=== PATIENT | female | born 1935 | race Caucasian/White ===

== ENCOUNTER 2020-02-27 20:32 | Emergency (ER) | payer MEDICARE, BC, SELFPAY ==
[2020-02-27 20:34] VITALS: BP 151/63; PULSE 72; RESP 17; TEMP 36.6; O2SAT 96; BMI 30.1
--- NOTE | 2020-02-27 20:54 | XR_ITS ---
WS: [id number] RIGHT SHOULDER: 3 VIEW(S) TECHNIQUE: Internal and external rotation with Y view. HISTORY: fall with shoulder pain COMPARISON: None available. Acute fracture involving the proximal humerus. Avulsion of the greater tuberosity. There is a fractur e that extends into the neck and head of the proximal humerus without significant displacement. Fract ure line extends several centimeters vertically into the proximal humerus. Glenohumeral and AC joints are unremarkable. XR/XR shoulder RT min 2V* [id number] IMPRESSION: 1. Avulsion fracture greater tuberosity. 2. Nondisplaced fracture RIGHT humeral head/neck and proximal diaphysis.
--- NOTE | 2020-02-27 20:54 | XR_ITS ---
WS: [id number] RIGHT KNEE: 3 VIEW(S) TECHNIQUE: AP, oblique(s) and lateral. HISTORY: fall with knee pain COMPARISON: 03/19/2013 No fracture or dislocation. Severe narrowing of the lateral joint space. Near bone upon bone with sclerosis, osteophytes and subc hondral cystic changes. Mild narrowing of patellofemoral and medial compartment. Osteoarthritic swann es are progressed significantly since 2012. Very small suprapatellar effusion. Soft tissue edema anterior to the patella tendon. Moderate atherosclerosis femoral and popliteal artery. XR/XR knee RT 3V* [id number] IMPRESSION: 1. No acute fracture identified. 2. Moderate progression of tricompartment osteoarthritis, most significant in the lateral compartment. 3. Soft tissue edema anteriorly along the patellar tendon.
--- NOTE | 2020-02-27 20:54 | ED_ITS ---
Documented by User: MAT Bingham 02/28/20 03:04 HPI - Fall General: Chief Complaint: Fall Stated Complaint: rt shoulder pain post fall Time Seen by Provider: 02/27/20 20:54 History of Present Illness: HPI Narrative: Patient is an 84-year-old female who comes to the ED after having a fall via EMS.. Patient was walking down a step on a wooden deck and fell hitting her right knee, right shoulder and her head. Patient says she heard a snap or crack when she hit the ground. Patient denies any loss of consciousness or bleeding from the head. Her biggest complaint is right shoulder pain and she says her right knee pain is mild. She rates her right shoulder pain a 9 out of 10. Any movement of around the shoulder joint causes pain. EMS put patient's right arm in sling and gave her IV fentanyl in route. Associated symptoms-after fall: Denies abdominal pain, chest pain, headache(s), hematuria or neck pain Review of Systems Const: Denies: fever(s), chills or fatigue Eyes: Denies: change in vision or eye discomfort ENMT: Denies: throat pain, odynophagia, nasal discharge or nasal congestion Card: Denies: chest pain, palpitations, edema, swelling of feet/ankles, dyspnea on exertion or orthopnea Resp: Denies: dyspnea, productive cough or non-productive cough GI: Denies: abdominal pain, nausea, vomiting, diarrhea, constipation or hematochezia : Denies: flank pain, dysuria or hematuria Musc: Reports: extremity pain (Right knee and right shoulder. Right shoulder hurts her the most.); Denies: neck pain, back pain or extremity swelling Skin/Breast: Denies: rash or new lesions Neuro: Denies: headache(s), numbness in extremities or weakness in extremities PFSH ED PFSH: Medical History Elevated cholesterol Hypertension Urinary incontinence Surgical History H/O bladder repair surgery H/O knee surgery S/P cholecystectomy S/P hysterectomy S/P shoulder surgery Family History Father , TB No problems noted. Mother , TB No problems noted. Social History Smoking and tobacco status: former smoker Alcohol intake: never Marital status: Current occupational status: retired History of recent travel: No Physical Exam Narrative: EXAM NARRATIVE: Patient is a pleasant 84-year-old female that is lying on the exam bed when I enter the room. She had her right arm across to her abdomen and she was holding her right arm with her left arm. She appeared to be in some pain anytime she did any movement with her right arm. Const: COMMON NORMALS: patient oriented x3 and alert GENERAL APPEARANCE: cooperative; not comfortable (Patient appears uncomfortable and in pain in the right shoulder.) HENMT: COMMON NORMALS: normocephalic HEAD & SCALP: normocephalic MOUTH: Normal oral and palatal mucosa present THROAT: posterior oropharynx normal and uvula midline Neck/C-Spine: COMMON NORMALS: supple GENERAL: Yes normal visual inspection Resp: COMMON NORMALS: normal respiratory effort, No retractions, No use of accessory muscles and clear to auscultation bilaterally AUSCULTATION: clear to auscultation bilaterally Cardio: COMMON NORMALS: regular rate, regular rhythm, S1 normal heart sound present, S2 normal heart sound present, No gallops present (Cardio), No clicks present (Cardio), No murmurs present (Cardio) and Peripheral pulses 2+ throughout RATE: regular rate RHYTHM: regular rhythm HEART SOUNDS: S1 normal heart sound present and S2 normal heart sound present PERIPHERAL PULSES: Peripheral pulses 2+ throughout GI: COMMON NORMALS: Normal to inspection, nondistended, normoactive bowel soun ds present, Soft to palpation, non-tender and no masses PALPATION: Yes Soft to palpation : COMMON NORMALS: Yes no CVA tenderness BLADDER/KIDNEY EXAM: Yes no CVA tenderness Back/Pelvis: COMMON NORMALS: no CVA tenderness Extremity: COMMON NORMALS: no pedal edema RIGHT UPPER EXTREMITY: Yes shoulder joint (Shoulder was tender upon palpation over the head of the humerus) Right shoulder: Yes Right shoulder joint inspection exam (Some mild edema seen around right shoulder. No visible deformity seen and no ecchymosis seen.), Yes palpation, Yes Right shoulder joint ROM exam (Limited due to pain) and Yes Right shoulder joint neurovascular exam (Radial pulse 2+, sensation intact, cap refill normal, full movement with hand forearm and fingers.) RIGHT LOWER EXTREMITY: Yes knee joint Right knee: Yes palpation (Tenderness upon the inferior lateral aspect of knee.) and Yes neurovascular exam (Intact) Neuro: COMMON NORMALS: patient oriented x3, CN's II-XII intact bilaterally, moves all extremities, no focal motor deficits and no sensory deficits noted SENSORIUM/ORIENTATION: Yes alert SPEECH: speech normal MOTOR EXAM: 5/5 motor strength present throughout Skin: COMMON NORMALS: no rashes or lesions noted GENERAL SKIN EXAM: no rashes or lesions noted and dry skin Course Vital Signs: Vital signs: Vital Signs Temperature 97.9 F 02/27/20 20:34 Pulse Rate 60 02/28/20 00:39 Respiratory Rate 16 02/28/20 00:39 Blood Pressure 138/57 02/28/20 00:39 Pulse Oximetry 92 02/28/20 00:39 MDM - Fall MDM Narrative: Medical decision making narrative: Patient is an 84-year-old female who comes to the ED after a fall via EMS. Patient fell and hit her right knee, right shoulder and her head. Her biggest complaint is pain in her right shoulder. On exam patient had tenderness upon palpation of the right shoulder especially over the head of the humerus. She was neurovascularly intact distal to injury site. Radial pulse 2+, sensation to fingers normal and she had full range of motion wrist and hand. X-ray right knee showed no acute findings or fracture. CT of head showed no acute findings. X-ray of right shoulder showed proximal fracture of the he humerus. It appeared that the lesser tubercle had been fragmented. I went and discussed this case with Dr. Waggoner and he looked at the images. He recommended that I put patient in a shoulder immobilizer and put in a referral for Ortho with case management. I placed Ortho referral order with case management and patient was put in a shoulder immobilizer. She was sent home with a prescription for Percocet and Zofran. Patient was told that Ortho clinic or case management will call her in the next couple days to set up an appointment. She was told to keep shoulder immobilizer on and to limit any use with right arm. Patient understood and agreed with plan. Return to ED precautions given. Imaging Data^: CT Head: Attestation: I personally reviewed and interpreted this imaging study as follows: Radiologist's impression: [facility] [address] [address] [address] Scan Report Signed Patient: Greer Chauhan Unit #: [id number] : 1935 Age/Sex: 84 / F ADM Date: 02/27/20 Loc: ER Room/Bed: Attending Dr: Ordering Provider/Ordering MD: Dionicio Card Date of Service: 02/27/20 Procedure(s): CT head wo con* [id number] Accession Number(s): [id number] Report Number: [id number] PROCEDURE INFORMATION: Exam: CT Head Without Contrast Exam date and time: 02/27/2020 10:17 PM Age: 84 years old Clinical indication: Injury or trauma; Initial encounter; Blunt trauma (contusions or hematomas); Without loss of consciousness; Patient HX: Fall down steps denies loc; Additional info: Fell and hit head, no loc TECHNIQUE: Imaging protocol: Computed tomography of the head without contrast. Radiation optimization: All CT scans at this facility use at least one of these dose optimization techniques: automated exposure control; mA and/or kV adjustment per patient size (includes targeted exams where dose is matched to clinical indication); or iterative reconstruction. COMPARISON: CTA Head/Neck [id number] 05/25/2015 2:07 PM RADIATION DOSE METRICS: Total DLP (mGy-cm): 728.48 FINDINGS: Brain: No acute intracranial hemorrhage or mass effect. There is decreased attenuation in the periventricular white matter, likely from microvascular disease. There are old lacunar infarcts in the right basal ganglia region. No definite acute infarct by CT. Ventricles: Ventricle size is normal for age. Bones/joints: No definite acute skull fracture. Sinuses: Included paranasal sinuses are essentially clear. Mastoid air cells: No significant acute finding. Vasculature: Vascular calcifications in the internal carotid and vertebral basilar systems. CT/CT head wo con* [id number] IMPRESSION: 1. No acute intracranial hemorrhage or mass effect. 2. Changes of microvascular disease, and old lacunar infarcts. 3. Other findings discussed above. Radiation Dose CTDIVOL = (mGy): DLP = 728.48 (mGy-cm) Dictated By: Woody Li MD Signed By: Woody Li MD Signed Date/Time: 02/27/202330 DD/ 28 Xray Ortho: Attestation: I personally reviewed and interpreted this imaging study as follows: My impression: Right knee x-ray showed no acute findings or fractures. Right shoulder x-ray showed proximal humerus fracture. Fractures was a segment of the lesser tubercle. Swelling around and in the joint. Pending final radiology report. Discharge Plan Discharge Patient Disposition: Home Clinical Impression: Fracture of proximal end of humerus Qualifiers: Encounter type: initial encounter Fracture type: closed Fracture morphology: other fracture Fracture alignment: nondisplaced Laterality: right Qualified Code(s): S42.294A - Other nondisplaced fracture of upper end of right humerus, initial encounter for closed fracture Condition: Stable Prescriptions: New ondansetron 4 mg tablet,disintegrating 4 mg PO Q8H PRN (Reason: nausea and vomiting) Qty: 30 RF: 0 No Action montelukast 10 mg tablet 10 mg PO DAILY RF: 0 aspirin [Adult Low Dose Aspirin] 81 mg tablet,delayed release (DR/EC) 81 mg PO DAILY RF: 0 lovastatin 20 mg tablet 20 mg PO DAILY RF: 0 lisinopril 2.5 mg tablet 2.5 mg PO DAILY RF: 0 omeprazole 20 mg capsule,delayed release(DR/EC) 20 mg PO DAILY RF: 0 metoprolol tartrate 50 mg tablet 50 mg PO BID RF: 0 meloxicam 7.5 mg tablet 7.5 mg PO DAILY RF: 0 famotidine [Pepcid AC] 20 mg tablet 20 mg PO DAILY PRNRF: 0 cholecalciferol (vitamin D3) 50 mcg (2,000 unit) capsule 50 mcg PO DAILY RF: 0 magnesium 200 mg tablet 200 mg PO DAILY RF: 0 amlodipine 10 mg tablet 10 mg PO DAILY Qty: 90 RF: 3 Discharge Orders: Discharge Order (Routine); Ordered 02/27/20 Ordered By: Dionicio Card Referrals: Maty Livingston NP [Primary Care Provider] - Discharge Diet: Regular Discharge Activity: Limit activity as instructed Patient Instructions: Fractures - Humerus Activity Restrictions/Additional Instructions: Follow-up with medical provider as directed. Case management or orthopedic clinic should be contacting you in the next several days to set up an appointment. Take medications as prescribed. Return to the ER or your medical provider if condition worsens. Please read and understand discharge instructions. If any questions, please ask. Discharge Date/Time: 02/28/20 00:41 Coding Level of Care Code ED [employer] for Brenna Fwd Exam Comprehensive Documented by User: James Waggoner, DO 02/28/20 03:39 HPI - Fall General: Chief Complaint: Fall Stated Complaint: rt shoulder pain post fall Time Seen by Provider: 02/27/20 20:54 PFSH ED PFSH: Medical History Elevated cholesterol Hypertension Urinary incontinence Surgical History H/O bladder repair surgery H/O knee surgery S/P cholecystectomy S/P hysterectomy S/P shoulder surgery Family History Father , TB No problems noted. Mother , TB No problems noted. Social History Smoking and tobacco status: former smoker Alcohol intake: never Marital status: Current occupational status: retired History of recent travel: No Course Vital Signs: Vital signs: Vital Signs Temperature 97.9 F 02/27/20 20:34 Pulse Rate 60 02/28/20 00:39 Respiratory Rate 16 02/28/20 00:39 Blood Pressure 138/57 02/28/20 00:39 Pulse Oximetry 92 02/28/20 00:39 Discharge Plan Discharge Patient Disposition: Home Clinical Impression: Fracture of proximal end of humerus Qualifiers: Encounter type: initial encounter Fracture type: closed Fracture morphology: other fracture Fracture alignment: nondisplaced Laterality: right Qualified Code(s): S42.294A - Other nondisplaced fracture of upper end of right humerus, initial encounter for closed fracture Condition: Stable Prescriptions: New ondansetron 4 mg tablet,disintegrating 4 mg PO Q8H PRN (Reason: nausea and vomiting) Qty: 30 RF: 0 No Action montelukast 10 mg tablet 10 mg PO DAILY RF: 0 aspirin [Adult Low Dose Aspirin] 81 mg tablet,delayed release (DR/EC) 81 mg PO DAILY RF: 0 lovastatin 20 mg tablet 20 mg PO DAILY RF: 0 lisinopril 2.5 mg tablet 2.5 mg PO DAILY RF: 0 omeprazole 20 mg capsule,delayed release(DR/EC) 20 mg PO DAILY RF: 0 metoprolol tartrate 50 mg tablet 50 mg PO BID RF: 0 meloxicam 7.5 mg tablet 7.5 mg PO DAILY RF: 0 famotidine [Pepcid AC] 20 mg tablet 20 mg PO DAILY PRNRF: 0 cholecalciferol (vitamin D3) 50 mcg (2,000 unit) capsule 50 mcg PO DAILY RF: 0 magnesium 200 mg tablet 200 mg PO DAILY RF: 0 amlodipine 10 mg tablet 10 mg PO DAILY Qty: 90 RF: 3 Discharge Orders: Discharge Order (Routine); Ordered 02/27/20 Ordered By: Dionicio Card Referrals: Maty Livingston NP [Primary Care Provider] - Discharge Diet: Regular Discharge Activity: Limit activity as instructed Patient Instructions: Fractures - Humerus Activity Restrictions/Additional Instructions: Follow-up with medical provider as directed. Case management or orthopedic clinic should be contacting you in the next several days to set up an appointment. Take medications as prescribed. Return to the ER or your medical provider if condition worsens. Please read and understand discharge instructions. If any questions, please ask. Discharge Date/Time: 02/28/20 00:41 Coding Level of Care Code ED [employer] for Brenna Fwtracy Exam Comprehensive
[2020-02-27 21:00] VITALS: BP 134/64; PULSE 66; RESP 16; O2SAT 94
[2020-02-27 21:29] VITALS: RESP 16; O2SAT 95
[2020-02-27] MEDS: ondansetron 2 mg/ML SDV 2 mL 4 MG IVP ×2 (21:29→22:15)
[2020-02-27] MEDS: morphine 4 mg/mL SDV 1 mL IVP (21:29)
[2020-02-27 22:28] VITALS: RESP 18; O2SAT 97
[2020-02-27] MEDS: HYDROmorphone 1 mg/mL INJ 1 mL 0.5 MG IVP (22:28)
--- NOTE | 2020-02-27 23:02 | PC.NURSE ---
report given to brain rn assumed care.
--- NOTE | 2020-02-27 23:53 | PC.NURSE ---
pt hypoxic at 78% on room air. Nurse in room and pt states, i have sleep apnea . Pt put on 2L supplemental oxygen via NC
[2020-02-28 00:08] VITALS: RESP 16; O2SAT 93
[2020-02-28] MEDS: HYDROmorphone 1 mg/mL INJ 1 mL 0.5 MG IVP (00:08)
[2020-02-28] MEDS: metoclopramide 5 mg/mL SDV 2 mL 10 MG IVP (00:08)
[2020-02-28 00:39] VITALS: BP 138/57; PULSE 60; RESP 16; O2SAT 92
--- NOTE | 2020-02-28 11:06 | DCPLANNER ---
retail department manager had message to schedule a follow up appointment for patient with ortho. retail department manager called the ortho clinic, spoke with Pat, gave clinic patients information. retail department manager was told that patients information would be printed and reviewed. Clinic will call patient with appointment information.
--- NOTE | 2020-03-01 14:01 | DCPLANNER ---
Patient has a follow up appointment scheduled for , March 02, 2020 at 8;[address] Cooper. Clinic will call patient with appointment information.
--- NOTE | 2020-04-13 08:03 | DCPLANNER ---
Patient had a follow up appointment scheduled for 03.02.20 with ortho - patient did attend the appointment.
== END 2020-02-28 00:41 | disposition home or self-care (01) ==
PROVIDERS: Emergency Provider Physician Assistant; PCP Nurse Practitioner Family
DX: S42.294A Other nondisplaced fracture of upper end of right humerus, initial encounter for closed fracture (principal); Z79.82 Long term (current) use of aspirin; I10 Essential (primary) hypertension; Z87.891 Personal history of nicotine dependence; W19.XXXA Unspecified fall, initial encounter
CPT/HCPCS: 12345; 29240; 70450; 73030; 73562; 96374; 96375; 96376; 99282; 99284; J1170; J2270; J2405; J2765

== ENCOUNTER 2020-03-02 09:28 | Outpatient (CLI) | payer MEDICARE, BC, SELFPAY | END 2020-03-02 09:29 | disposition home or self-care (01) | LOC: SPT 09:29 | PROVIDERS: PCP Nurse Practitioner Family; Referring Provider Specialist; Visit Provider Specialist | DX: Z46.89 Encounter for fitting and adjustment of other specified devices (principal); S42.294D Other nondisplaced fracture of upper end of right humerus, subsequent encounter for fracture with routine healing; X58.XXXD Exposure to other specified factors, subsequent encounter | CPT/HCPCS: L3670 ==

== ENCOUNTER → 2020-03-08 13:06 | Outpatient (BNVA) | payer MEDICARE, BC, OTHER, SELFPAY | PROVIDERS: PCP Nurse Practitioner Family; Visit Provider Specialist | DX: S42.294A Other nondisplaced fracture of upper end of right humerus, initial encounter for closed fracture (principal); W10.8XXA Fall (on) (from) other stairs and steps, initial encounter; Y92.008 Other place in unspecified non-institutional (private) residence as the place of occurrence of the external cause | CPT/HCPCS: 73030 ==

== ENCOUNTER → 2020-03-30 12:26 | Outpatient (BNVA) | payer MEDICARE, BC, SELFPAY | PROVIDERS: PCP Nurse Practitioner Family; Visit Provider Specialist | DX: S42.294A Other nondisplaced fracture of upper end of right humerus, initial encounter for closed fracture (principal); X58.XXXA Exposure to other specified factors, initial encounter | CPT/HCPCS: 73030 ==

== ENCOUNTER → 2020-04-20 11:47 | Outpatient (BNVA) | payer MEDICARE, BC, SELFPAY | PROVIDERS: PCP Nurse Practitioner Family; Visit Provider Specialist | DX: S42.294A Other nondisplaced fracture of upper end of right humerus, initial encounter for closed fracture (principal) | CPT/HCPCS: 73030 ==

== ENCOUNTER 2020-04-24 14:22 | Outpatient (CLI) | payer MEDICARE, BC, SELFPAY ==
--- NOTE | 2020-04-24 15:15 | MR_ITS ---
WS: [id number] MRI RIGHT SHOULDER NONCONTRAST TECHNIQUE: Sagittal T2, coronal T1, T2 and proton density imaging. Axial gradient PDE imaging. CLINICAL INFORMATION: S42.294A Other nondisplaced fracture of upper end of righ... FINDINGS: Distal clavicle is normal in appearance. Moderate degenerative arthritis AC joint with moderate downs loping of the acromion. Narrowing of the subacromial space. Subacromial spurring. Small subacromial/s ubdeltoid effusion. Impacted comminuted humeral surgical neck fracture similar to the prior radiograp hs. Moderate edema involving the humeral head and neck. Mild subluxation of the humeral head posterio rly relative to the humeral shaft. Minimal medial subluxation. Bony glenoid is normal. Crescentic sha ped avulsed fragment displaced posteriorly along the dorsal humeral head. Avulsed fragment measures 3 .1 x 0.7 CM. Small shoulder effusion. High-grade tear involving the supraspinatus with retraction measuring approximately 2.5 cm. Diffuse e denys supra and infraspinatus muscle bellies. Additional high-grade tear involving the infraspinatus w ith retraction. Normal subscapularis. Biceps tendon medially subluxed proximally at the margin of the bicipital groov e. Otherwise biceps tendon within the bicipital groove appears intact. Glenoid labrum appears grossly intact. Mild soft tissue edema about the shoulder capsule more prominent dorsally. MR/MR shoulder RT wo con* [id number] IMPRESSION: 1. Comminuted humeral surgical neck fracture with diffuse edema involving the humeral head and neck. 2. Avulsed fragment displaced posteriorly along the posterior glenohumeral beth nt and posterior humeral head. Avulsed fragment measures 3.1 x 0.7 cm. 3. High-grade rotator cuff tears involving the supraspinatus and infraspinatus with tendon retraction. Diffuse edema involving the rotator cuff. 4. Medial subluxation of the biceps tendon in the bicipital groove proximally otherwise appears intact. 5. Moderate arthritis AC joint with edema.
== END 2020-04-24 14:23 | disposition home or self-care (01) ==
LOC: RADWPI 14:31
PROVIDERS: PCP Nurse Practitioner Family; Visit Provider Specialist
DX: S42.294A Other nondisplaced fracture of upper end of right humerus, initial encounter for closed fracture (principal); S42.211A Unspecified displaced fracture of surgical neck of right humerus, initial encounter for closed fracture; X58.XXXA Exposure to other specified factors, initial encounter; R60.0 Localized edema; M75.101 Unspecified rotator cuff tear or rupture of right shoulder, not specified as traumatic; M19.011 Primary osteoarthritis, right shoulder
CPT/HCPCS: 73221

== ENCOUNTER 2020-05-02 06:00 | Outpatient (RCR) | payer MEDICARE, BC, SELFPAY | END 2020-05-13 23:59 | disposition home or self-care (01) | LOC: SPT 06:00 | PROVIDERS: PCP Nurse Practitioner Family; Referring Provider Specialist; Visit Provider Specialist | DX: S42.201D Unspecified fracture of upper end of right humerus, subsequent encounter for fracture with routine healing (principal); X58.XXXD Exposure to other specified factors, subsequent encounter | CPT/HCPCS: 97110; 97161 ==

== ENCOUNTER 2020-05-02 13:28 | Outpatient (CLI) | payer MEDICARE, BC, SELFPAY ==
--- NOTE | 2020-05-02 13:37 | MM_ITS ---
WS: [id number] BILATERAL DIGITAL SCREENING MAMMOGRAPHY WITH CAD CLINICAL INFORMATION: SCREENING HISTORY: Screening mammogram. No current complaints. COMPARISON: TECHNIQUE: Bilateral CC and MLO views. FINDINGS: Scattered fibroglandular densities bilaterally. No suspicious focal mass, asymmetry, calcifications, or architectural distortion. No evidence of malignancy. Vascular calcification. Lucent centered calci fications. Clustered calcifications left breast. MM/[place] [id number] IMPRESSION: BI-RADS: 2-Benign FOLLOW UP: 1 Year Follow-up Recommend return to annual screening mammography.
== END 2020-05-02 13:29 | disposition home or self-care (01) ==
LOC: RADSHAW 13:33
PROVIDERS: PCP Nurse Practitioner Family; Visit Provider Nurse Practitioner Family
DX: Z12.31 Encounter for screening mammogram for malignant neoplasm of breast (principal)
CPT/HCPCS: 77067

== ENCOUNTER 2020-05-22 14:01 | Outpatient (RCR) | payer MEDICARE, BC, SELFPAY | END 2020-05-30 23:00 | disposition home or self-care (01) | LOC: SPT 14:01 | PROVIDERS: PCP Nurse Practitioner Family; Visit Provider Specialist | DX: S42.201D Unspecified fracture of upper end of right humerus, subsequent encounter for fracture with routine healing (principal) | CPT/HCPCS: 97110 ==

== ENCOUNTER 2020-06-01 10:10 | Outpatient (CLI) | payer MEDICARE, BC, SELFPAY ==
[2020-05-31 09:43] VITALS: BMI 28.3
--- NOTE | 2020-05-31 10:10 | ECG_ITS ---
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
[2020-05-31 10:18] LABS: Basophils # 0.1 10^3/uL (0.0-0.1); Basophils % 0.7 %; Eosinophils # 0.1 10^3/uL (0.0-0.8); Eosinophils % 1.7 %; Hematocrit 39.5 % (37.0-47.0); Hemoglobin 12.6 g/dL (11.5-15.3); Lymphocytes # 1.3 10^3/uL (0.8-4.8); Lymphocytes % 17.2 %; Mean Corpuscular HGB Conc 31.9 g/dL (30.0-36.0); Mean Corpuscular Hemoglobin 28.6 pg (28.0-34.0); Mean Corpuscular Volume 89.6 fL (81-99); Mean Platelet Volume 11.2 fL (7.4-10.4); Monocytes # 0.5 10^3/uL (0.2-0.9); Neutrophils # 5.54 10^3/uL (1.8-7.7); Neutrophils % 73.9 %; Nucleated Red Blood Cells % 0 %; Platelet Count 213 10^3/cmm (130-400); Red Blood Count 4.41 10^6/uL (4.1-5.3); Red Cell Distribution Width 12.7 % (12.1-15.1); White Blood Count 7.5 10^3/uL (4.0-10.0)
[2020-05-31 10:35] LABS: Alanine Aminotransferase 13 U/L (0-33); Albumin Level 4.1 g/dL (3.5-5.2); Alkaline Phosphatase 116 IU/L (35-105); Anion Gap 13.6 (5-19); Aspartate Amino Transferase 18 U/L (0-32); Blood Urea Nitrogen 20 mg/dL (8-23); Calcium 9.3 mg/dL (8.5-10.5); Carbon Dioxide 28 mmol/L (22-29); Chloride 99 mmol/L (98-107); Globulin 2.7 g/dL (1.3-4.6); Glucose 102 mg/dL (65-115); Osmolality Calculated 287 mOsm/kg (285-295); Potassium 3.6 mmol/L (3.5-5.1); Sodium 137 mmol/L (136-145); Total Bilirubin 0.5 mg/dL (0.15-1.2); Total Protein 6.8 g/dL (6.6-8.7)
--- NOTE | 2020-05-31 10:41 | ANES.PREANE2 ---
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 Proposed Procedure: Operation Date: 06/06/20 07:00 Proposed Procedures p Right Total Reverse Shoulder Arthroplasty 04702 s42.294A M75.101(Right) - Jeannine Cooper MD Familial anesthetic complications: None Social: Social History: No alcohol and No tobacco Exam: Pre-Anes Outpt Exam: alert, oriented x 3, clear to auscultation bilaterally and regular rate & rhythm Airway: Cervical ROM: WNL MP: 2 Dentition: Partials Pulmonary: Comments: Lung surgery (bleeding cyst in upper lobe) - breathing back at baseline prone to pneumonia CV/HEM: CV/HEM: HTN GI: GI: GERD Neuropsych: Neuropsych: CVA (3 strokes (residual dysphagia)) Anesthetic Plan: ASA status: 2 Anesthesia: General and Regional (specify below) Other: Interscalene Risk of > 500 ml blood loss (7ml/kg in children): No PFSH Anesthesia PFSH: Medical History (Updated 05/31/20 @ 10:03 by Raghu Hanna RN) Elevated cholesterol Hypertension Urinary incontinence Surgical History H/O bladder repair surgery H/O knee surgery S/P cholecystectomy S/P hysterectomy S/P shoulder surgery Family History Father , TB No problems noted. Mother , TB No problems noted. Social History Smoking and tobacco status: former smoker Alcohol intake: never Marital status: Current occupational status: retired History of recent travel: No Female Reproductive History: Date of last menstrual period: 05/29/77 Data Anesthesia CBC & Chem 7: 05/31/20 10:10 05/31/20 10:10 Other Labs: Laboratory Results - last 48 hr 05/31/20 05/31/20 10:10 10:10 WBC 7.5 RBC 4.41 Hgb 12.6 Hct 39.5 MCV 89.6 MCH 28.6 MCHC 31.9 RDW 12.7 Plt Count 213 MPV 11.2 H Neut % (Auto) 73.9 Lymph % (Auto) 17.2 [place] % (Auto) 6.0 Eos % (Auto) 1.7 Baso % (Auto) 0.7 Neut # (Auto) 5.54 Lymph # (Auto) 1.3 [place] # (Auto) 0.5 Eos # (Auto) 0.1 Baso # (Auto) 0.1 Nucleated RBC % (auto) 0 Nucleated RBCs # 0.0 Sodium 137 Potassium 3.6 Chloride 99 Carbon Dioxide 28 Anion Gap 13.6 BUN 20 Creatinine 1.2 H GFR Calculation Not Reportable Glucose 102 Calculated Osmolality 287 Calcium 9.3 Total Bilirubin 0.5 AST 18 ALT 13 Alkaline Phosphatase 116 H Total Protein 6.8 Albumin 4.1 Globulin 2.7 Cardiac Studies: No Data to Display
[2020-06-01 07:58] LABS: Add Urine Microscopic? NO
[2020-06-01 08:16] LABS: Bilirubin Urine Neg (Negative); Blood Urine Neg (Negative); Glucose Urine UA Norm (Normal); Ketones Urine Negative (Negative); Leukocyte Esterase Urine Negative (Negative); Nitrate Urine Negative (Negative); Protein Urine Neg (Negative); Urine Appearance Clear (CLEAR); Urine Color Straw (Yellow); Urobilinogen Urine Norm (Negative); pH Urine 6.5 (5-7)
== END 2020-06-01 10:11 | disposition home or self-care (01) ==
LOC: OPS 03-25 12:49
PROVIDERS: PCP Nurse Practitioner Family; Visit Provider Specialist
DX: Z01.818 Encounter for other preprocedural examination (principal)
CPT/HCPCS: 80053; 81003; 85025; 93005

== ENCOUNTER → 2020-06-22 16:20 | Outpatient (BNVA) | payer MEDICARE, SELFPAY | PROVIDERS: PCP Nurse Practitioner Family; Visit Provider Specialist | DX: S42.294A Other nondisplaced fracture of upper end of right humerus, initial encounter for closed fracture (principal) | CPT/HCPCS: 87635 ==

== ENCOUNTER 2020-06-29 11:26 | Inpatient (IN) | payer MEDICARE, BC, SELFPAY ==
[2020-06-22 09:24] VITALS: BMI 28.3
--- NOTE | 2020-06-22 09:30 | SUR.PREOP ---
PATIENT SAYS SHE ABSOLUTELY DOES NOT WANT HER BED TO BE LEFT UP AT NIGHT FOR SLEEPING.
--- NOTE | 2020-06-22 10:17 | ANES.PREANE2 ---
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 Proposed Procedure: Operation Date: 06/29/20 13:00 Proposed Procedures p right Total Reverse Shoulder Arthroplasty 27154 S42.294A M75.101(Right) - Jeannine Cooper MD Familial anesthetic complications: None Social: Social History: No alcohol and No tobacco Exam: Pre-Anes Outpt Exam: alert, oriented x 3, clear to auscultation bilaterally and regular rate & rhythm Airway: Cervical ROM: WNL MP: 3 Dentition: Partials Pulmonary: Comments: lung surgery d/t bleeding cyst in R upper lobe - 1963 CV/HEM: CV/HEM: HTN GI: GI: GERD Metabolic: Metabolic: Hyperlipidemia Neuropsych: Neuropsych: 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 She didn't go to the doctor for them when they occured)) Anesthetic Plan: ASA status: 3 Anesthesia: General and Regional (specify below) Other: interscalene block Risk of > 500 ml blood loss (7ml/kg in children): No PFSH Anesthesia PFSH: Medical History (Updated 06/17/20 @ 16:17 by Cesario Boggs MD) Elevated cholesterol Hypertension Urinary incontinence Surgical History (Updated 06/22/20 @ 09:33 by Martha Beauchamp) H/O bladder repair surgery H/O knee surgery S/P cholecystectomy S/P hysterectomy S/P shoulder surgery Family History Father , TB No problems noted. Mother , TB No problems noted. Social History Smoking and tobacco status: former smoker Alcohol intake: never Marital status: Current occupational status: retired History of recent travel: No Female Reproductive History: Date of last menstrual period: 05/29/77 Data Anesthesia Cardiac Studies: No Data to Display
[2020-06-29] VITALS (17 sets, daily range): BP systolic 100–154; BP diastolic 58–82; PULSE 62–88; RESP 14–35; TEMP 34.8–36.5; O2SAT 87–98
--- NOTE | 2020-06-29 | SCC_ITS ---
Procedure Done: Right reverse shoulder arthroplasty with long head of biceps tenodesis with associated intra-articular biceps resection 21.1 seconds of fluoroscopic guidance, for a cumulative dose of 2.43 mGy, was provided to Dr. Cooper by the radiology department. C-arm images of the RIGHT shoulder were saved for the patient's permanent record. [facility]
[2020-06-29] MEDS: CELEcoxib 200 mg Capsule 400 MG PO (12:15)
[2020-06-29] MEDS: sodium chloride 0.9% 1,000 ML 30 ML IV (12:20)
--- NOTE | 2020-06-29 12:59 | W.PM.OPSUD ---
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
[2020-06-29] MEDS: midazolam 1 mg/mL INJ 2 mL 2 MG IVP (13:50)
[2020-06-29] MEDS: fentaNYL 50 mcg/mL INJ 2mL 100 MCG IVP (13:50)
[2020-06-29] MEDS: vancomycin 1,000 MG in sodium chloride 0.9% 250 ML 167 MG IV (13:55)
--- NOTE | 2020-06-29 14:21 | ANES.PREANE2 ---
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 Proposed Procedure: Operation Date: 06/29/20 13:00 Proposed Procedures p right Total Reverse Shoulder Arthroplasty 60766 S42.294A M75.101(Right) - Jeannine Cooper MD Was Beta Jeanette taken within 24 hours: Yes Last intake: Intake Last Liquid Date 06/28/20 Last Liquid Time 23:45 Last Solid Date 06/28/20 Last Solid Time 21:00 Social: Social History: No alcohol and No tobacco Exam: Pre-Anes Outpt Exam: alert, oriented x 3, clear to auscultation bilaterally and regular rate & rhythm Airway: Submandibular: WNL Cervical ROM: WNL MP: 2 Pulmonary: Pulmonary: None reported CV/HEM: CV/HEM: HTN : : None reported Hepatic: Hepatic: None reported GI: GI: GERD Metabolic: Metabolic: None reported Musc/skel: Musc/skel: None reported Neuropsych: Neuropsych: None reported Anesthetic Plan: ASA status: 3 Anesthesia: General and Regional (specify below) (Right Interscalene Nerve Block ) Meds/Allergies Current Medications: Current Medications Generic Name Dose Route Start Last Admin Trade Name Freq PRN Reason Stop Dose Admin Sodium Chloride 1,000 mls @ 30 ml s/hr 06/29/20 11:30 06/29/20 12:20 Sodium Chloride 0.9% IV 06/30/20 11:29 30 mls/hr .Q24H MATHEW Administration Midazolam HCl 2 mg 06/29/20 11:21 06/29/20 13:50 Midazolam 1 Mg/M l Inj 2 Ml IVP 2 mg Q5M PRN Administration Preop Anxiety PFSH Anesthesia PFSH: Medical History Elevated cholesterol Hypertension Urinary incontinence Surgical History H/O bladder repair surgery H/O knee surgery S/P cholecystectomy S/P hysterectomy S/P shoulder surgery Family History Father , TB No problems noted. Mother , TB No problems noted. Social History Smoking and tobacco status: former smoker Alcohol intake: never Marital status: Current occupational status: retired History of recent travel: No Female Reproductive History: Date of last menstrual period: 05/29/77 Data Anesthesia Cardiac Studies: No Data to Display
--- NOTE | 2020-06-29 14:25 | ANES.PROC ---
Anesthesia Procedures Procedure/Date: 06/29/20 Nerve Block ^: Nerve Block 1: Main Anesthesia: general anesthesia Time Out Performed: Yes Consent: requested by attending/covering physician, risks and benefits reviewed and patient agrees to proceed Nerve block location: interscalene Anesthesia monitors applied: pulse oximetry and BP cuff Nerve block position: semi sitting Anesthetic Used: ropivicaine 0.5% Amount of anesthesia used (mL): 30 Nerve Stimulator Used?: Yes Interscalene/Femoral BLK: 2 stimuplex 22 g needle used for position and inplane approach Injection: neg aspiration of heme and paresthesia +/- (No paresthesia ) Patient Tolerated Procedure: well and no complications Complications: none
[2020-06-29] MEDS: ceFAZolin 1,000 mg SDV 1000 MG IRRIGATION (15:09)
[2020-06-29] MEDS: vancomycin 1,000 MG SDV 1000 MG XX (15:10)
[2020-06-29] MEDS: sodium chloride 0.9% SDV 10 mL (15:10)
--- NOTE | 2020-06-29 16:58 | XR_ITS ---
WS: [id number] XR shoulder RT min 2V* [id number] REASON FOR EXAM: REVERSE RIGHT SHOULDER ARTHROPLASTY FINDINGS: Total reverse right shoulder arthroplasty. Components of the prosthesis appear in proper position ali gnment. No soft tissue or bony abnormality identified. XR/XR shoulder RT min 2V* [id number] IMPRESSION: Total right shoulder arthroplasty as above.
--- NOTE | 2020-06-29 17:03 | PM.OP ---
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 A reunion S humeral stem with a 14 mm diameter by 98 mm length and a humeral cup size 32 mm x 4 mm with a humeral insert size 32 mm x 4 mm. 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 She has had very limited use of her right upper extremity. She has pain with any range of motion. She presents today for reverse shoulder arthroplasty. Risks and complications were discussed with her preoperatively. She wished to proceed with operative intervention. Procedure: The patient was brought to the operating theater and placed in a beachchair position following administration of general anesthesia intubated as well as the preoperative interscalene block. Once she was positioned and confirmation was made that we could place the shoulder in appropriate positions to accomplish the surgical procedure, the right upper extremity was prepped and draped in usual fashion utilizing DuraPrep. We confirmed we could visualize appropriately with fluoroscopy as well prior to prepping. Following the DuraPrep, the patient's arm was draped free. A stockinette was placed distally. This allowed us full access to the shoulder. Preoperatively, the patient's arm had been marked and I subsequently initialed this, during our surgical pause, we confirmed the site and side of surgery and this augusto was visualized. Additionally, the clavicle as well as the acromioclavicular joint and the coracoid were marked to allow appropriate incision placement. Preoperative antibiotic, vancomycin g, and TXA 1 g was also given. Surgical pause was performed prior to incision. Prior to incision, a manipulation of the shoulder was accomplished as the patient only had, even under anesthesia, approximately 40 degrees of abduction and 0 external rotation. Incision then began between the acromioclavicular joint and coracoid and continued along the deltopectoral groove. This was a standard deltopectoral incision. Dissection continued through skin and soft tissues using a scalpel,and hemostasis was obtained using electrocautery. The deltopectoral fascia was incised and care was taken to protect the cephalic vein. Cephalic vein was retracted laterally and pectoralis was retracted medially. Soft tissues were then elevated from the subscapularis tendon. Retractors were placed. The coracoid was palpated as well as the musculocutaneous nerve and these were retracted as well as the deltoid on the opposite side. The leash of vessels at the inferior aspect of the subscapularis was cauterized. Tag sutures were placed 2 cm medial to the biceps tendon and further medial and an incision was made through the capsule and subscapularis tendon between the 2 lines of sutures. There was an osteophyte in this area which was excised. Incision was continued transversely both superiorly through the rotator interval and inferiorly to allow access to the shoulder joint. Additionally, the biceps tendon was noted to be torn. This required a biceps tendon resection intra-articularly with associated extra-articular tenodesis. There was noted to be very thinned soft tissue in the area of the supraspinatus and infraspinatus. The humeral head was dislocated from the glenohumeral joint. Soft tissues were elevated off of the neck of the humerus. In this way we were able to mobilize the humerus. Osteotomy was accomplished of the humeral head, and we were then able to move the humeral head out of the way to visualize the glenoid. Soft tissues were resected from around glenoid and down onto the glenoid neck. Cautery was used to do this so that we could fully visualize for placement of the components. Care was taken to protect the musculocutaneous and also the axillary nerves during this process. Attention was directed to the humerus to prepare the humerus and avoid compression of the proximal humerus with retraction to allow access to the glenoid. Once the humeral head osteotomy had been accomplished and osteophytes at been removed, we were able to mobilize the humerus and bring it up out of the wound slightly. Sequential reamers were then passed and subsequently sequential broaches. We broached to a size 14 S with a 14 S reamer having been passed as well. The broach was left in position. The glenoid was visualized. The guidewire was placed into the glenoid using the jig which is included in the system. This pin was placed until a bicortical hole was obtained. Care was taken to assure that we were bicortical. This was measured and the screw measured a size 24 mm. Prior to removal of the guidewire, reaming was accomplished. We reamed until we had good cortical bleeding bone. Following this the guide pin was removed and a depth gauge was utilized to assure that this was the appropriate length screw to truly be bicortical. Palpation with the depth gauge demonstrated that we were indeed bicortical. Finding this to be so and having reamed to good bleeding bone, the 28 mm reunion RSA glenoid base plate was screwed into position with the peripheral screws being at 12:00, 3:00, 6:00, and 9:00 positions. This was screwed securely into place and the peripheral screws were placed. We had good purchase with all peripheral screws and their length included 16 mm superior, posterior, and inferior, and a 20 mm screw anterior. Once the glenoid had been thus prepared, the concentric glenosphere, size 32 mm with a 2 mm offset was impacted into position. Care was taken to fully evaluate that the glenosphere had seated completely. A trial reduction was accomplished with the trial glenosphere at 32 mm with a 2 mm offset and with a 32 mm x 4 mm humeral cup and a 32 mm +10 mm humeral insert. With this construct, we had excellent range of motion. We were able to abduct to 90?, and we had free range of motion below this with excellent internal and external rotation. The patient was able to reach the back of his head. We had no obvious impingement. Distraction on the arm demonstrated less than a millimeter of distraction. Gentle range of motion was accomplished secondary to the severe osteopenia. Therefore, this was the chosen size for the implant. All trial components were removed including the broach. Upon evaluation of the humerus, we did feel that the size 14 S good fit and fill with no evidence of loosening. Bony tissue was trimmed from around the area as was soft tissue. A size 14 S reunion TSA modular humeral stem was impacted into position. Onto this subsequently was placed the 32 mm x 4 mm humeral cup which had been assembled to the 32 x 4 mm humeral insert. The construct was reduced. Once again, range of motion was performed, we had excellent stability with no evidence of dislocation. Therefore, attention was directed to closure. The shoulder was irrigated copiously. This was suctioned dry and subsequently irrigated with normal saline containing Ancef. We were not able to effectively close the subscapularis secondary to contracture. The deltopectoral groove was then evaluated. The vein was intact. Soft tissues were closed in this area with 0 Vicryl over the vein area with care being taken to protect the vein. The subcutaneous tissues were closed using 2-0 Monocryl. The skin was closed with a running 3-0 Monocryl. This was followed by Exofin and Steri-Strips. Sterile dressing was placed consisting of a Telfa, 4 x 4 and Tegaderm. The patient was placed in a slingshot style sling and was returned to recovery room in satisfactory condition where she will be discharged to the floor for postoperative rehabilitation and pain management. There were no specimens and no complications. X-rays were obtained intraoperatively and demonstrated both appropriate position and reduction of the components as well as excellent fit of the humeral canal. Associated Problem List Diagnoses (1) Traumatic arthritis of shoulder region:
--- NOTE | 2020-06-29 17:16 | P.PCN_ITS ---
PACU note PACU note: VSS, good respiratory effort, report to [employer] Post-Anesthesia Exam: somnolent, arousable Disposition: admitted
--- NOTE | 2020-06-29 17:16 | PM.PACU ---
PACU note PACU note: VSS, good respiratory effort, report to TRAUMA COORDINATOR Post-Anesthesia Exam: somnolent, arousable Disposition: admitted
[2020-06-29] MEDS: ondansetron 2 mg/ML SDV 2 mL 4 MG IVP (17:26)
--- NOTE | 2020-06-29 18:08 | SUR.PHASEI ---
1739 PT AWAKE ALERT TALKATIVE AND LAUGHING WITH STAFF, PT MOVED TO BED WITH SLIDE BOARD AND 4 STAFF ASSIST, PT IN SHOULDER IMMOBILICER AND FIRST ICE , DRESSING TO RT SHOULDER D/I DISTAL FINGERS PINK WARM, PT IV PATENT , FLUSHES EASILY BUT REMAINS RED ABOVE INSERTION SITE, DR ROSARIO AND Suzie WHATLEY , BOTH AWARE AND STATES IT IS PATENT , MAY BE A LOCAL REACTION TO OR MEDS, BUT OTHERWISE PATENT AND EASILY FLUSHED . HANDOFF AT BEDSIDE AND LARS BOUCHER AWARE OF ABOVE, PT C/O OF NAUSEA OFF AND ON COOL CLOTHE TO FOREHEAD, PT STATES ( IM ALWAYS URPEE)
--- NOTE | 2020-06-29 18:11 | SUR.PHASEI ---
1739 SATS ON 3LNC WERE 93-94% resp unlabored.
--- NOTE | 2020-06-29 18:38 | PC.NURSE ---
patient received from Alyssa RN in pacu, patient was drowsy. rectal temp showed 94.7. Dr. Cooper was notified who gave orders to place pt on bear hugger. IV site to L forearm was infiltrated, it was discontinued and a new line placed in the R AC space. patient now resting in bed at this time, no complaints of pain. shoulder immobilizer in place to R shoulder, dressing is c/d/i call light is within reach on patients left side.
[2020-06-29] MEDS: oxyCODONE 5 mg IR Tab/Cap PO (23:05)
[2020-06-30] VITALS (9 sets, daily range): BP systolic 111–138; BP diastolic 64–73; PULSE 58–80; RESP 14–18; TEMP 36.3–36.5; O2SAT 92–97
[2020-06-30] MEDS: oxyCODONE 5 mg IR Tab/Cap PO ×2 (03:37→08:42)
[2020-06-30] MEDS: TRAMadol 50 mg Tablet PO (05:56)
[2020-06-30] MEDS: cholecalciferol (vitamin D3) 1,000 unit Tablet 2000 UNIT PO (08:38)
[2020-06-30] MEDS: hydroCHLOROthiazide 25 mg Tablet 12.5 MG PO (08:39)
[2020-06-30] MEDS: atorvastatin 40 mg Tablet 20 MG PO (08:40)
[2020-06-30] MEDS: lisinopril 2.5 mg Tablet PO (08:40)
[2020-06-30] MEDS: sennosides-docusate Tablet 2 TAB PO (08:41)
[2020-06-30] MEDS: montelukast sodium 10 mg Tablet PO (08:41)
[2020-06-30] MEDS: metoprolol tartrate 50 mg Tablet PO (08:42)
[2020-06-30] MEDS: amlodipine 10 mg Tablet PO (08:42)
[2020-06-30] MEDS: aspirin 325 mg EC Tablet PO (08:42)
[2020-06-30] MEDS: CELEcoxib 200 mg Capsule PO (08:44)
--- NOTE | 2020-06-30 09:01 | P.DS_ITS ---
Discharge Providers Date of Admission: 06/29/20 11:26 Date of Discharge: June 30, 2020 Attending Provider at Admission: Jeannine Cooper MD Attending Provider at Discharge: Jeannine Cooper MD Primary Care Provider: Maty Livingston NP Diagnoses at Discharge Discharge Diagnosis (1) Traumatic arthritis of shoulder region: Status: Acute Reason for Visit Reason for Visit: right Total Reverse Shoulder Arthroplasty 76237 S4 Hospital Course Hospital Course The patient was admitted to the hospital following same-day surgery. The surgical procedure performed is as follows: Right reverse shoulder arthroplasty with long head of biceps tenodesis with associated intra-articular biceps resection Implants: The [employer] reverse shoulder system with a size 28 reunion RSA glenoid base plate with a 32 mm x 6.5 mm center screw, 4.5 mm x 16 mm inferior, posterior and superior peripheral screws, and a 4.5 x 20 mm anterior screw, a concentric glenosphere size 32 with 2 mm offset. A reunion S humeral stem with a 14 mm diameter by 98 mm length and a humeral cup size 32 mm x 4 mm with a humeral insert size 32 mm x 4 mm. Patient did well overnight. Once her block wore off, she did require pain medications, but her pain is being controlled by oral agents. She is neurologically intact. Her wound is benign. There has been no bleeding from the wound. Overall, she is doing well. She will work with OT and PT and will be discharged today, postop day 1. She will return to my clinic as scheduled. If she has any issues or concerns she will call. She understands. Physical Exam Const: COMMON NORMALS: no acute distress, average body habitus, patient oriented x3 and alert GENERAL APPEARANCE: cooperative and comfortable ORIE NTATION/CONSCIOUSNESS: Yes awake HENMT: COMMON NORMALS: normocephalic and atraumatic HEAD & SCALP: normocephalic and atraumatic Eye: GENERAL EYE: appearance normal, both eyes and all related structures Chest: COMMONS NORMALS: normal inspection of the chest Resp: COMMON NORMALS: normal respiratory effort EFFORT & INSPECTION: Yes able to speak in complete sentences and Yes symmetric chest movement Extremity: RIGHT UPPER EXTREMITY: Yes shoulder joint (Incision benign without drainage. ) Right shoulder: Yes Right shoulder joint inspection exam (There is minimal to no bruising or swelling.), Yes Right shoulder joint ROM exam (Not evaluated.), Yes Right shoulder joint neurovascular exam (Intact distally.) and Yes Right shoulder joint other findings (There is no pain to palpation.) Neuro: COMMON NORMALS: patient oriented x3 SENSORIUM/ORIENTATION: Yes alert Psych: COMMON NORMALS: mental status grossly normal APPEARANCE: Yes grossly normal ATTITUDE: Yes calm and Yes engaged ATTENTION/CONCENTRATION: Yes attention grossly intact Skin: COMMON NORMALS: no rashes or lesions noted GENERAL SKIN EXAM: no rashes or lesions noted Urinary Catheter Management^: f: Cath Placed During This Visit: yes, but has since been removed by the nurse Urinary Catheter Date of Insertion: 06/29/20 Urinary Catheter Time of Insertion: 14:45 Date Urinary Catheter Removed: 06/29/20 Time Urinary Catheter Discontinued: 17:05 Discharge Data 2 Data Completed and Pending: Completed Studies During Hospitalization Category Date Time Status XR shoulder RT mi n 2V* 63078 Routin e Exams 06/29/20 16:58 Completed Pending at discharge Category Date Time Status C-arm Fluoroscopy 93964 Routine Exams 06/29/20 11:32 Taken Vitals: Last Vital Signs Temp 97.5 F L 06/30/20 08:00 Pulse 68 06/30/20 08:00 Resp 16 06/30/20 08:42 BP 118/66 06/30/20 08:00 Pulse Ox 97 06/30/20 08:42 Discharge Plan Discharge Patient Disposition: Home Health Service Condition: Stable Prescriptions: New oxycodone 5 mg Tablet 5 - 10 mg PO Q4H PRN (Reason: Moderate To Severe Pain) Qty: 30 RF: 0 acetaminophen 500 mg Tablet 1,000 mg PO Q8H 15 Days Qty: 90 RF: 0 aspirin 325 mg Tablet,Delayed Release (Dr/Ec) 325 mg PO DAILY 30 Days Qty: 0 RF: 0 Continued montelukast 10 mg tablet 10 mg PO DAILY RF: 0 lovastatin 20 mg tablet 20 mg PO DAILY RF: 0 lisinopril 2.5 mg tablet 2.5 mg PO DAILY RF: 0 omeprazole 20 mg capsule,delayed release(DR/EC) 20 mg PO DAILY RF: 0 metoprolol tartrate 50 mg tablet 50 mg PO BID RF: 0 meloxicam 7.5 mg tablet 7.5 mg PO DAILY RF: 0 cholecalciferol (vitamin D3) 50 mcg (2,000 unit) capsule 50 mcg PO DAILY RF: 0 magnesium 200 mg tablet 200 mg PO DAILY RF: 0 (DME) SHOULDER IMMOBILIZER See Rx Instructions .Route .MEDSUPPLY Qty: 1 RF: 0 amlodipine 10 mg tablet 10 mg PO DAILY Qty: 90 RF: 3 hydrochlorothiazide 12.5 mg PO DAILY RF: 0 Held aspirin [Adult Low Dose Aspirin] 81 mg tablet,delayed release (DR/EC) 81 mg PO DAILY RF: 0 Hold Instructions: Resume on 07/31/20. Take after completing 30 days at 325 dosing Tylenol 325 mg PO PRN PRN (Reason: Pain, Mild) RF: 0 Hold Instructions: Resume on 07/13/20. Take Tylenol scheduled Discharge Orders: Discharge Order (Routine); Ordered 06/30/20 Ordered By: Jeannine Cooper Referrals: Jeannine Cooper MD [Physician] - 07/17/20 8:00 am Discharge Diet: Advance as tolerated and Usual diet Discharge Activity: Limit activity as instructed and As per PT/OT instructions Activity Restrictions/Additional Instructions: You have been sent home with a reverse shoulder protocol. Please follow this. Maintain elbow in front of body. Ice to right shoulder Discharge Attestations Time Spent in Discharge Care*: greater than 30 min Specific Discharge Activities: educating patient, discussing with pcp/other providers, documenting/other paperwork and evaluating patient/reviewing data Quality Metrics Clinical Quality Measures During this hospital stay, did patient experience: None Coding Level of Care Code Acute Python Consultant for Brenna Holguin Diagnoses Traumatic arthritis of shoulder region M12.519
[2020-06-30] MEDS: pantoprazole DR 40 mg Tablet PO (10:09)
== END 2020-06-30 13:00 | disposition home health service (06) | DRG 483 ==
LOC: MEDSURG 15:44
PROVIDERS: Admitting Provider Specialist; PCP Nurse Practitioner Family; Visit Provider Specialist
PROC: 0RRJ00Z Replacement of Right Shoulder Joint with Reverse Ball and Socket Synthetic Substitute, Open Approach (ICD-10-PCS; CPT 23472; principal; 2020-06-29 13:00)
DX: M12.511 Traumatic arthropathy, right shoulder (principal); S49.00 Unspecified physeal fracture of upper end of humerus; X58.XXXS Exposure to other specified factors, sequela; M75.101 Unspecified rotator cuff tear or rupture of right shoulder, not specified as traumatic; E78.00 Pure hypercholesterolemia, unspecified; Z79.82 Long term (current) use of aspirin; I10 Essential (primary) hypertension; R32 Unspecified urinary incontinence; Z87.891 Personal history of nicotine dependence
CPT/HCPCS: 12345; 73030; 76000; 96365; 96374; 96375; 97110; 97161; 97166; 97530; C1776; J0131; J0690; J2250; J2370; J2405; J2704; J2795; J3010; J3370; J3490; J7030; J7050

== ENCOUNTER → 2020-07-20 09:54 | Outpatient (BNVA) | payer MEDICARE, BC, SELFPAY | PROVIDERS: PCP Nurse Practitioner Family; Visit Provider Specialist | DX: Z48.89 Encounter for other specified surgical aftercare (principal) | CPT/HCPCS: 73030 ==

== ENCOUNTER → 2020-09-04 13:10 | Outpatient (BNVA) | payer MEDICARE, BC, SELFPAY | PROVIDERS: PCP Nurse Practitioner Family; Visit Provider Specialist | DX: Z48.89 Encounter for other specified surgical aftercare (principal); S42.294S Other nondisplaced fracture of upper end of right humerus, sequela | CPT/HCPCS: 73030 ==

== ENCOUNTER 2020-09-12 14:32 | Outpatient (RCR) | payer MEDICARE, BC, SELFPAY | END 2020-10-11 23:59 | disposition home or self-care (01) | LOC: SPT 14:32 | PROVIDERS: PCP Nurse Practitioner Family; Referring Provider Specialist; Visit Provider Specialist | DX: Z47.89 Encounter for other orthopedic aftercare (principal) | CPT/HCPCS: 97110; 97140; 97161 ==

== ENCOUNTER → 2020-10-09 13:13 | Outpatient (BNVA) | payer MEDICARE, BC, SELFPAY | PROVIDERS: PCP Nurse Practitioner Family; Visit Provider Specialist | DX: Z96.611 Presence of right artificial shoulder joint (principal) | CPT/HCPCS: 73030 ==

== ENCOUNTER 2020-10-12 06:00 | Outpatient (RCR) | payer MEDICARE, BC, SELFPAY | END 2020-11-10 23:59 | disposition home or self-care (01) | LOC: SPT 06:00 | PROVIDERS: PCP Nurse Practitioner Family; Referring Provider Specialist; Visit Provider Specialist | DX: Z47.89 Encounter for other orthopedic aftercare (principal) | CPT/HCPCS: 97110; 97140 ==

== ENCOUNTER → 2020-11-06 13:23 | Outpatient (BNVA) | payer MEDICARE, BC, SELFPAY | PROVIDERS: PCP Nurse Practitioner Family; Visit Provider Specialist | DX: Z48.89 Encounter for other specified surgical aftercare (principal); S42.294S Other nondisplaced fracture of upper end of right humerus, sequela; Z96.611 Presence of right artificial shoulder joint; M25.519 Pain in unspecified shoulder | CPT/HCPCS: 73030 ==

== ENCOUNTER 2020-11-11 06:00 | Outpatient (RCR) | payer MEDICARE, BC, SELFPAY | END 2020-12-11 23:59 | disposition home or self-care (01) | LOC: SPT 06:00 | PROVIDERS: PCP Nurse Practitioner Family; Referring Provider Specialist; Visit Provider Specialist | DX: Z47.89 Encounter for other orthopedic aftercare (principal) | CPT/HCPCS: 97110; 97140 ==

== ENCOUNTER 2020-12-12 06:00 | Outpatient (RCR) | payer MEDICARE, BC, SELFPAY | END 2021-01-10 23:59 | disposition home or self-care (01) | LOC: SPT 06:00 | PROVIDERS: PCP Nurse Practitioner Family; Referring Provider Specialist; Visit Provider Specialist | DX: Z47.89 Encounter for other orthopedic aftercare (principal) | CPT/HCPCS: 97110 ==

== ENCOUNTER → 2021-03-22 08:26 | Outpatient (BNVA) | payer MEDICARE, BC, SELFPAY | PROVIDERS: PCP Nurse Practitioner Family; Visit Provider Specialist | DX: Z48.89 Encounter for other specified surgical aftercare (principal); S42.294S Other nondisplaced fracture of upper end of right humerus, sequela; Z96.611 Presence of right artificial shoulder joint; M25.519 Pain in unspecified shoulder | CPT/HCPCS: 73030 ==

== ENCOUNTER 2022-01-11 13:58 | Emergency (ER) | payer MEDICARE, BC, SELFPAY ==
--- NOTE | 2022-01-11 14:18 | XR_ITS ---
WS: [id number] XR chest 1V portable [id number] REASON FOR EXAM: dyspnea/cough FINDINGS: The chest is unchanged compared to 01/29/2021. Mild tortuosity the thoracic aorta. Normal heart size. Calcified granulomatous disease in both hemithoraces. Mild elevation of the right hemidiaphragm. No acute pulmonary parenchymal or pleural abnormality. Reverse total arthroplasty of the right shoulder. Moderate degenerative spondylosis in the mid and lower thoracic spine. XR/XR chest 1V portable [id number] IMPRESSION: No acute chest abnormality.
--- NOTE | 2022-01-11 14:18 | ECG_ITS ---
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 Measurements Intervals [place] Rate: 82 P: 85 [place]: 166 QRS: -21 QRSD: 82 T: 72 QT: 375 QTc: 440 Interpretive Statements SINUS RHYTHM BORDERLINE LEFT AXIS DEVIATION [QRS AXIS < -20] Compared to ECG 05/31/2020 10:27:55 Sinus bradycardia no longer present Myocardial infarct finding no longer present Electronically Signed On 01-12-2022 12:22:05 CDT by Petey So M.D. [id number]
[2022-01-11 14:20] VITALS: BP 189/83; PULSE 83; RESP 16; TEMP 36.8; O2SAT 95; BMI 27.2
--- NOTE | 2022-01-11 14:28 | ED_ITS ---
Documented by User: Juan Simpson DO 01/14/22 08:42 HPI - Neuro Symptoms/Deficit General: Chief Complaint: Neuro Symptoms/Deficit Stated Complaint: NOT THINKING RIGHT Time Seen by Provider: 01/11/22 14:13 Source: patient Mode of arrival: EMS Limitations: no limitations History of Present Illness: 86-year-old female presents emergency room complaining of not feeling well and having difficulty finding words. She states she is just not well not functioning well. Cannot give any specific details. States that last night she began to have trouble with his issues she woke up and was persisting this morning. She denies any chest pain or abdominal pain chronically short of breath but no more than usual she denies dysuria urgency or frequency nausea vomiting or diarrhea. States she had trouble finding her words last night beginning around 10:00 but when I talked to her now she does not seem to have much difficulty she does have difficulty remembering what her doctors name is beyond that she is alert and oriented x3. Onset (ago): hour(s) Location: speech History of same: No Severity: mild Relieving factors: none Exacerbating factors: none Context: sudden onset Associated symptoms: Deny chest pain, cough, diaphoresis, fevers/chills, headache(s), anorexia, malaise, nausea, seizures, short of breath, syncope, tingling, vertigo, vomiting or weakness Treatments Prior to Arrival: none Review of Systems Const: Denies: fever(s), chills, fatigue, malaise or diaphoresis ENMT: Denies: throat pain, ear or mastoid pain, nasal discharge or nasal congestion Card: Denies: chest pain or syncope Resp: Denies: dyspnea, productive cough or non-productive cough GI: Denies: abdominal pain, nausea or vomiting : Denies: flank pain, difficulty voiding, dysuria, urinary frequency or urinary urgency Musc: Denies: neck pain or back pain Skin/Breast: Denies: rash or pruritus Neuro: Denies: headache(s) or vertigo PFSH ED PFSH: Medical History Dyslipidemia Elevated cholesterol Hypertension Sleep apnea Urinary incontinence Surgical History H/O bladder repair surgery H/O breast surgery H/O knee surgery History of lung surgery S/P cholecystectomy S/P hysterectomy S/P shoulder surgery Family History Father , TB No problems noted. Mother , TB No problems noted. Social History Smoking and tobacco status: former smoker Alcohol intake: never Marital status: Current occupational status: retired History of recent travel: No Female Reproductive History: Date of last menstrual period: 05/29/77 NIH stroke score NIHSS: Level Of Consciousness - 1a: 0 Level Of Consciousness Questions - 1b: Both Correct Level Of Consciousness Commands - 1c: Both Correct Best Gaze - 2: Normal Visual Mcknight - 3: No Visual Loss Facial Palsy - 4: Normal Motor Arm Right - 5: No Drift Motor Arm Left - 5: No Drift Motor Leg Right - 6: No Drift Motor Leg Left - 6: No Drift Limb Ataxia - 7: A bsent Sensory - 8: Normal Best Language - 9: No Aphasia Dysarthia - 10: Normal Extinction And Inattention - 11: 0 Score: Total Score: 0 Physical Exam Const: GENERAL APPEARANCE: cooperative and comfortable ORIENTATION/CONSCIOUSNESS: Yes awake, Yes oriented to person, Yes oriented to place and Yes oriented to time HENMT: COMMON NORMALS: normocephalic, atraumatic and hearing grossly normal bilaterally HEAD & SCALP: normocephalic and atraumatic Neck/C-Spine: COMMON NORMALS: no JVD Resp: COMMON NORMALS: normal respiratory effort, No retractions, No use of accessory muscles and clear to auscultation bilaterally AUSCULTATION: clear to auscultation bilaterally Cardio: COMMON NORMALS: no JVD, regular rate, regular rhythm and No murmurs present (Cardio) RATE: regular rate RHYTHM: regular rhythm GI: COMMON NORMALS: Soft to palpation and No hepatosplenomegaly present AUSCULTATION: Yes normoactive bowel sounds PALPATION: Yes Soft to palpation, No Tenderness to palpation present (GI), No Guarding due to palpation present (GI) and Yes No hepatosplenomegaly present Extremity: COMMON NORMALS: normal to inspection, capillary refill normal, no clubbing, cyanosis or edema, no calf tenderness and no pedal edema Neuro: SENSORIUM/ORIENTATION: Yes oriented to person, Yes oriented to place and Yes oriented to time Skin: COMMON NORMALS: no rashes or lesions noted GENERAL SKIN EXAM: no rashes or lesions noted Course Vital Signs: Vital signs: Vital Signs Temperature 98.2 F 01/11/22 20:40 Pulse Rate 88 01/11/22 20:40 Respiratory Rate 18 01/11/22 20:40 Blood Pressure 172/83 01/11/22 20:40 Pulse Oximetry 99 01/11/22 20:40 MDM - Neuro Symptoms/Deficit Medical Decision Making Care signed out to Dr. Waggoner at change of shift. See final notes for diagnosis and disposition. 86-year-old lady originally seen by Dr. Clinton. She was checked out to me at shift change. This lady had been complaining of generalized weakness and having trouble finding her words she is hypertensive. Improved after hydralazine and amlodipine. Laboratory shows mild prerenal azotemia, and otherwise is benign. Her head CT shows some periventricular white matter changes, similar to a CT in 2019. No need to acute stroke findings. Her CTA of the head and neck showed less than 50% carotid stenosis, and no occlusion. The lady complains to me of widespread pain. She evidently fell a few days ago, and has bruising to her right flank/posterior chest wall. She is not having shortness of breath. She has having pain in this area as well as to her lower extremities. Chest x-ray here does not reveal pulmonary contusion or rib fracture. She will be placed on a mild opiate pain pill for the next couple of days. She and her family were warned that this increases her fall risk, and can lead to confusion. They accept the risks. Close outpatient follow-up Lab Data : 01/11/22 14:43 01/11/22 14:43 Radiology Impressions Chest X-Ray 01/11/22 14:18 IMPRESSION: No acute chest abnormality. Head CT 01/11/22 14:29 IMPRESSION: 1. No acute intracranial findings. 2. Other stable nonacute intracranial findings as above. 3. Nasal bone findings as above. Head/Neck CTA 01/11/22 15:43 IMPRESSION: Negative for intracranial large arterial vessel occlusion. IMPRESSION: Less than 50% carotid artery stenosis. REFERENCES: NASCET CRITERIA. The degree of internal carotid artery stenosis is based on NASCET criteria. Normal is no stenosis. Mild is less than 50% stenosis. Moderate is 50-69% stenosis. Severe is 70% to 99% stenosis. Total occlusion is no detectable patent lumen. Laboratory Results WBC 8.6 10^3/uL (4.0-10.0) 01/11/22 14:43 RBC 4.07 10^6/uL (4.1-5.3) L 01/11/22 14:43 Hgb 11.5 g/dL (11.5-15.3) 01/11/22 14:43 Hct 34.9 % (37.0-47.0) L 01/11/22 14:43 MCV 85.7 fl (81-99) 01/11/22 14:43 MCH 28.3 pg (28.0-34.0) 01/11/22 14:43 MCHC 33.0 g/dL (30.0-36.0) 01/11/22 14:43 RDW 12.9 % (12.1-15.1) 01/11/22 14:43 Plt Count 252 10^3/cmm (130-400) 01/11/22 14:43 MPV 10.7 fL (7.4-10.4) H 01/11/22 14:43 Neut % (Auto) 71.6 % 01/11/22 14:43 Lymph % (Auto) 19.7 % 01/11/22 14:43 [place] % (Auto) 6.3 % 01/11/22 14:43 Eos % (Auto) 1.3 % 01/11/22 14:43 Baso % (Auto) 0.5 % 01/11/22 14:43 Neut # (Auto) 6.17 10^3/uL (1.8-7.7) 01/11/22 14:43 Lymph # (Auto) 1.7 10^3/uL (0.8-4.8) 01/11/22 14:43 [place] # (Auto) 0.5 10^3/uL (0.2-0.9) 01/11/22 14:43 Eos # (Auto) 0.1 10^3/uL (0.0-0.8) 01/11/22 14:43 Baso # (Auto) 0.0 10^3/uL (0.0-0.1) 01/11/22 14:43 Nucleated RBC % (auto) 0 % 01/11/22 14:43 Nucleated RBCs # 0.0 /100WBC 01/11/22 14:43 Sodium 138 mmol/L (136-145) 01/11/22 14:43 Potassium 4.3 mmol/L (3.5-5.1) 01/11/22 14:43 Chloride 100 mmol/L (98-107) 01/11/22 14:43 Carbon Dioxide 28 mmol/L (22-29) 01/11/22 14:43 Anion Gap 14.3 (5-19) 01/11/22 14:43 BUN 24 mg/dL (8-23) H 01/11/22 14:43 Creatinine 1.3 mg/dL (0.5-0.9) H 01/11/22 14:43 GFR Calculation Not Reportable 01/11/22 14:43 Glucose 120 mg/dL (65-115) H 01/11/22 14:43 Calculated Osmolality 291 mOsm/kg (285-295) 01/11/22 14:43 Calcium 9.7 mg/dL (8.5-10.5) 01/11/22 14:43 Magnesium 1.9 mg/dL (1.7-2.3) 01/11/22 14:43 Total Bilirubin 0.3 mg/dL (0.15-1.2) 01/11/22 14:43 AST 12 U/L (0-32) 01/11/22 14:43 ALT 9 U/L (0-33) 01/11/22 14:43 Alkaline Phosphatase 108 IU/L (35-105) H 01/11/22 14:43 Total Protein 7.1 g/dL (6.6-8.7) 01/11/22 14:43 Albumin 3.9 g/dL (3.5-5.2) 01/11/22 14:43 Globulin 3.2 g/dL (1.3-4.6) 01/11/22 14:43 Urine Color Yellow (Yellow) 01/11/22 17:24 Urine Appearance Clear (CLEAR) 01/11/22 17:24 Urine pH 6.5 (5-7) 01/11/22 17:24 Ur Specific [place] 1.010 (1.005-1.030) 01/11/22 17:24 Urine Protein Neg (Negative) 01/11/22 17:24 Urine Glucose (UA) Norm (Normal) 01/11/22 17:24 Urine Ketones Negative (Negative) 01/11/22 17:24 Urine Blood Neg (Negative) 01/11/22 17:24 Urine Nitrate Negative (Negative) 01/11/22 17:24 Urine Bilirubin Neg (Negative) 01/11/22 17:24 Urine Urobilinogen Norm mg/dL (Negative) 01/11/22 17:24 Ur Leukocyte Esterase Negative (Negative) 01/11/22 17:24 Discharge Plan Discharge Patient Disposition: Home Clinical Impression: Contusion of back wall of thorax, Hypertension Condition: Stable Prescriptions: New hydrocodone-acetaminophen 5-325 mg tablet 1 tab PO Q8H PRN (Reason: pain) Qty: 7 0RF No Action montelukast 10 mg tablet 10 mg PO DAILY 0RF aspirin [Adult Low Dose Aspirin] 81 mg tablet,delayed release (DR/EC) 81 mg PO DAILY 0RF Hold Instructions: Resume on 07/31/20. Take after completing 30 days at 325 dosing lovastatin 20 mg tablet 20 mg PO DAILY 0RF lisinopril 2.5 mg tablet 2.5 mg PO DAILY 0RF omeprazole 20 mg capsule,delayed release(DR/EC) 20 mg PO DAILY 0RF metoprolol tartrate 50 mg tablet 50 mg PO BID 0RF cholecalciferol (vitamin D3) 50 mcg (2,000 unit) capsule 50 mcg PO DAILY 0RF magnesium 200 mg tablet 200 mg PO DAILY 0RF meloxicam 7.5 mg Tablet 7.5 mg PO DAILY 0RF hydrochlorothiazide 12.5 mg Tablet 12.5 mg PO DAILY 0RF Discharge Orders: Discharge ED (Routine); Ordered 01/11/22 Ordered By: James Waggoner Referrals: Halley Roberson FNP [Primary Care Provider] - 4-7 days Patient Instructions: Contusion in Adults (ED), Hypertension (ED), Opioid Safety Activity Restrictions/Additional Instructions: Check your blood pressure twice daily for the next 3 days. Report numbers to your physician. If your blood pressure remains high, it may need treatment. Take pain medication for severe pain only. Ideally someone should be home with you when on medication as it can increase her fall risk. Return for any new or concerning symptoms such as worsening mental status, falling more frequently, confusion, weakness, any other concerns Coding Level of Care Code ED Brick Handler for Chg Fwd Exam Comprehensive Documented by User: James Waggoner DO 01/14/22 13:24 HPI - Neuro Symptoms/Deficit General: Chief Complaint: Neuro Symptoms/Deficit Stated Complaint: NOT THINKING RIGHT Time Seen by Provider: 01/11/22 14:13 PFSH ED PFSH: Medical History Dyslipidemia Elevated cholesterol Hypertension Sleep apnea Urinary incontinence Surgical History H/O bladder repair surgery H/O breast surgery H/O knee surgery History of lung surgery S/P cholecystectomy S/P hysterectomy S/P shoulder surgery Family History Father , TB No problems noted. Mother , TB No problems noted. Social History Smoking and tobacco status: former smoker Alcohol intake: never Marital status: Current occupational status: retired History of recent travel: No NIH stroke score Score: Total Score: 0 Course Vital Signs: Vital signs: Vital Signs Temperature 98.2 F 01/11/22 20:40 Pulse Rate 88 01/11/22 20:40 Respiratory Rate 18 01/11/22 20:40 Blood Pressure 172/83 01/11/22 20:40 Pulse Oximetry 99 01/11/22 20:40 MDM - Neuro Symptoms/Deficit Medical Decision Making 86-year-old lady originally seen by Dr. Clinton. She was checked out to me at shift change. This lady had been complaining of generalized weakness and having trouble finding her words she is hypertensive. Improved after hydralazine and amlodipine. Laboratory shows mild prerenal azotemia, and otherwise is benign. Her head CT shows some periventricular white matter changes, similar to a CT in 2019. No need to acute stroke findings. Her CTA of the head and neck showed less than 50% carotid stenosis, and no occlusion. The lady complains to me of widespread pain. She evidently fell a few days ago, and has bruising to her right flank/posterior chest wall. She is not having shortness of breath. She has having pain in this area as well as to her lower extremities. Chest x-ray here does not reveal pulmonary contusion or rib fracture. She will be placed on a mild opiate pain pill for the next couple of days. She and her family were warned that this increases her fall risk, and can lead to confusion. They accept the risks. Close outpatient follow-up Lab Data : 01/11/22 14:43 01/11/22 14:43 Radiology Impressions Chest X-Ray 01/11/22 14:18 IMPRESSION: No acute chest abnormality. Head CT 01/11/22 14:29 IMPRESSION: 1. No acute intracranial findings. 2. Other stable nonacute intracranial findings as above. 3. Nasal bone findings as above. Head/Neck CTA 01/11/22 15:43 IMPRESSION: Negative for intracranial large arterial vessel occlusion. IMPRESSION: Less than 50% carotid artery stenosis. REFERENCES: NASCET CRITERIA. The degree of internal carotid artery stenosis is based on NASCET criteria. Normal is no stenosis. Mild is less than 50% stenosis. Moderate is 50-69% stenosis. Severe is 70% to 99% stenosis. Total occlusion is no detectable patent lumen. Laboratory Results WBC 8.6 10^3/uL (4.0-10.0) 01/11/22 14:43 RBC 4.07 10^6/uL (4.1-5.3) L 01/11/22 14:43 Hgb 11.5 g/dL (11.5-15.3) 01/11/22 14:43 Hct 34.9 % (37.0-47.0) L 01/11/22 14:43 MCV 85.7 fl (81-99) 01/11/22 14:43 MCH 28.3 pg (28.0-34.0) 01/11/22 14:43 MCHC 33.0 g/dL (30.0-36.0) 01/11/22 14:43 RDW 12.9 % (12.1-15.1) 01/11/22 14:43 Plt Count 252 10^3/cmm (130-400) 01/11/22 14:43 MPV 10.7 fL (7.4-10.4) H 01/11/22 14:43 Neut % (Auto) 71.6 % 01/11/22 14:43 Lymph % (Auto) 19.7 % 01/11/22 14:43 [place] % (Auto) 6.3 % 01/11/22 14:43 Eos % (Auto) 1.3 % 01/11/22 14:43 Baso % (Auto) 0.5 % 01/11/22 14:43 Neut # (Auto) 6.17 10^3/uL (1.8-7.7) 01/11/22 14:43 Lymph # (Auto) 1.7 10^3/uL (0.8-4.8) 01/11/22 14:43 [place] # (Auto) 0.5 10^3/uL (0.2-0.9) 01/11/22 14:43 Eos # (Auto) 0.1 10^3/uL (0.0-0.8) 01/11/22 14:43 Baso # (Auto) 0.0 10^3/uL (0.0-0.1) 01/11/22 14:43 Nucleated RBC % (auto) 0 % 01/11/22 14:43 Nucleated RBCs # 0.0 /100WBC 01/11/22 14:43 Sodium 138 mmol/L (136-145) 01/11/22 14:43 Potassium 4.3 mmol/L (3.5-5.1) 01/11/22 14:43 Chloride 100 mmol/L (98-107) 01/11/22 14:43 Carbon Dioxide 28 mmol/L (22-29) 01/11/22 14:43 Anion Gap 14.3 (5-19) 01/11/22 14:43 BUN 24 mg/dL (8-23) H 01/11/22 14:43 Creatinine 1.3 mg/dL (0.5-0.9) H 01/11/22 14:43 GFR Calculation Not Reportable 01/11/22 14:43 Glucose 120 mg/dL (65-115) H 01/11/22 14:43 Calculated Osmolality 291 mOsm/kg (285-295) 01/11/22 14:43 Calcium 9.7 mg/dL (8.5-10.5) 01/11/22 14:43 Magnesium 1.9 mg/dL (1.7-2.3) 01/11/22 14:43 Total Bilirubin 0.3 mg/dL (0.15-1.2) 01/11/22 14:43 AST 12 U/L (0-32) 01/11/22 14:43 ALT 9 U/L (0-33) 01/11/22 14:43 Alkaline Phosphatase 108 IU/L (35-105) H 01/11/22 14:43 Total Protein 7.1 g/dL (6.6-8.7) 01/11/22 14:43 Albumin 3.9 g/dL (3.5-5.2) 01/11/22 14:43 Globulin 3.2 g/dL (1.3-4.6) 01/11/22 14:43 Urine Color Yellow (Yellow) 01/11/22 17:24 Urine Appearance Clear (CLEAR) 01/11/22 17:24 Urine pH 6.5 (5-7) 01/11/22 17:24 Ur Specific [place] 1.010 (1.005-1.030) 01/11/22 17:24 Urine Protein Neg (Negative) 01/11/22 17:24 Urine Glucose (UA) Norm (Normal) 01/11/22 17:24 Urine Ketones Negative (Negative) 01/11/22 17:24 Urine Blood Neg (Negative) 01/11/22 17:24 Urine Nitrate Negative (Negative) 01/11/22 17:24 Urine Bilirubin Neg (Negative) 01/11/22 17:24 Urine Urobilinogen Norm mg/dL (Negative) 01/11/22 17:24 Ur Leukocyte Esterase Negative (Negative) 01/11/22 17:24 Discharge Plan Discharge Patient Disposition: Home Clinical Impression: Contusion of back wall of thorax, Hypertension Condition: Stable Prescriptions: New hydrocodone-acetaminophen 5-325 mg tablet 1 tab PO Q8H PRN (Reason: pain) Qty: 7 0RF No Action montelukast 10 mg tablet 10 mg PO DAILY 0RF aspirin [Adult Low Dose Aspirin] 81 mg tablet,delayed release (DR/EC) 81 mg PO DAILY 0RF Hold Instructions: Resume on 07/31/20. Take after completing 30 days at 325 dosing lovastatin 20 mg tablet 20 mg PO DAILY 0RF lisinopril 2.5 mg tablet 2.5 mg PO DAILY 0RF omeprazole 20 mg capsule,delayed release(DR/EC) 20 mg PO DAILY 0RF metoprolol tartrate 50 mg tablet 50 mg PO BID 0RF cholecalciferol (vitamin D3) 50 mcg (2,000 unit) capsule 50 mcg PO DAILY 0RF magnesium 200 mg tablet 200 mg PO DAILY 0RF meloxicam 7.5 mg Tablet 7.5 mg PO DAILY 0RF hydrochlorothiazide 12.5 mg Tablet 12.5 mg PO DAILY 0RF Discharge Orders: Discharge ED (Routine); Ordered 01/11/22 Ordered By: James Waggoner Referrals: Halley Roberson FNP [Primary Care Provider] - 4-7 days Patient Instructions: Contusion in Adults (ED), Hypertension (ED), Opioid Safety Activity Restrictions/Additional Instructions: Check your blood pressure twice daily for the next 3 days. Report numbers to your physician. If your blood pressure remains high, it may need treatment. Take pain medication for severe pain only. Ideally someone should be home with you when on medication as it can increase her fall risk. Return for any new or concerning symptoms such as worsening mental status, falling more frequently, confusion, weakness, any other concerns Coding Level of Care Code ED Brick Handler for Brenna Holguin Exam Comprehensive
--- NOTE | 2022-01-11 14:29 | CTR_ITS ---
PROCEDURE INFORMATION: Exam: CT Head Without Contrast Exam date and time: 01/11/2022 3:26 PM Age: 86 years old Clinical indication: Difficulty with word finding TECHNIQUE: Imaging protocol: Computed tomography of the head without contrast. COMPARISON: CT head wo con* [id number] 02/27/2020 10:50 PM RADIATION DOSE METRICS: Total DLP (mGy-cm): 899.34 FINDINGS: Brain: Mild hypodense changes are noted in the bilateral periventricular regions, likely related to chronic microvascular ischemic disease. 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 A subtle tiny hypodense focus in the left basal ganglia also appears stable, measuring about 2 mm. There is mild brain parenchymal atrophy. No acute intracranial hemorrhage, mass effect or midline shift. Cerebral ventricles: No pathologic ventricular dilatation. Paranasal sinuses: Visualized sinuses are unremarkable. No fluid levels. Mastoid air cells: Visualized mastoid air cells are well aerated. Bones/joints: Minimal left nasal bone deformity, partially visualized which may be normal variant or nasal bone injury of indeterminate age. No acute osseous findings otherwise. Soft tissues: Unremarkable. CT/CT head wo con* [id number] IMPRESSION: 1. No acute intracranial findings. 2. Other stable nonacute intracranial findings as above. 3. Nasal bone findings as above.
[2022-01-11 14:45] LABS: Basophils % 0.5 %; Eosinophils # 0.1 10^3/uL (0.0-0.8); Eosinophils % 1.3 %; Hematocrit 34.9 % (37.0-47.0); Hemoglobin 11.5 g/dL (11.5-15.3); Lymphocytes # 1.7 10^3/uL (0.8-4.8); Lymphocytes % 19.7 %; Mean Corpuscular Hemoglobin 28.3 pg (28.0-34.0); Mean Corpuscular Volume 85.7 fl (81-99); Mean Platelet Volume 10.7 fL (7.4-10.4); Monocytes # 0.5 10^3/uL (0.2-0.9); Monocytes % 6.3 %; Neutrophils # 6.17 10^3/uL (1.8-7.7); Neutrophils % 71.6 %; Nucleated Red Blood Cells % 0 %; Platelet Count 252 10^3/cmm (130-400); Red Blood Count 4.07 10^6/uL (4.1-5.3); Red Cell Distribution Width 12.9 % (12.1-15.1); White Blood Count 8.6 10^3/uL (4.0-10.0)
[2022-01-11] MEDS: ondansetron 2 mg/ML SDV 2 mL 4 MG IVP ×2 (14:45→17:57)
[2022-01-11 15:06] LABS: Alanine Aminotransferase 9 U/L (0-33); Albumin Level 3.9 g/dL (3.5-5.2); Alkaline Phosphatase 108 IU/L (35-105); Anion Gap 14.3 (5-19); Aspartate Amino Transferase 12 U/L (0-32); Blood Urea Nitrogen 24 mg/dL (8-23); Calcium 9.7 mg/dL (8.5-10.5); Carbon Dioxide 28 mmol/L (22-29); Chloride 100 mmol/L (98-107); Globulin 3.2 g/dL (1.3-4.6); Glucose 120 mg/dL (65-115); Magnesium 1.9 mg/dL (1.7-2.3); Osmolality Calculated 291 mOsm/kg (285-295); Potassium 4.3 mmol/L (3.5-5.1); Sodium 138 mmol/L (136-145); Total Bilirubin 0.3 mg/dL (0.15-1.2); Total Protein 7.1 g/dL (6.6-8.7)
--- NOTE | 2022-01-11 15:43 | CTR_ITS ---
PROCEDURE INFORMATION: Exam: CTA Head With Contrast, Arteriography Exam date and time: 01/11/2022 6:28 PM Age: 86 years old Clinical indication: Speech disturbance and syncope and collapse; Additional info: HX of prior seizures TECHNIQUE: Imaging protocol: Computed tomographic angiography of the head with contrast. Exam focused on the arteries. 3D rendering (Not supervised by radiologist): MIP and/or 3D reconstructed images were created by the technologist. Radiation optimization: All CT scans at this facility use at least one of these dose optimization techniques: automated exposure control; mA and/or kV adjustment per patient size (includes targeted exams where dose is matched to clinical indication); or iterative reconstruction. Contrast material: [place]IS[place]QUE; Contrast volume: 90 ml; Contrast route: INTRAVENOUS (IV); COMPARISON: CT head wo con* [id number] 01/11/2022 3:26 PM RADIATION DOSE METRICS: Total DLP (mGy-cm): 1682.27 FINDINGS: ANTERIOR CIRCULATION: Right internal carotid artery: Calcified plaques in the cavernous segment of the right ICA with mild stenosis. Right middle cerebral artery: Unremarkable. No occlusion or significant stenosis. No aneurysm. Right anterior cerebral artery: Unremarkable. No occlusion or significant stenosis. No aneurysm. Left internal carotid artery: Calcified plaques in the cavernous segment of the left ICA with mild stenosis. Left middle cerebral artery: Unremarkable. No occlusion or significant stenosis. No aneurysm. Left anterior cerebral artery: Unremarkable. No occlusion or significant stenosis. No aneurysm. POSTERIOR CIRCULATION: Right vertebral artery: Short segment moderate severity stenosis in the distal V4 segment of the right vertebral artery without occlusion. Left vertebral artery: Unremarkable. No occlusion or significant stenosis. No aneurysm. Basilar artery: Unremarkable. No occlusion or significant stenosis. No aneurysm. Right posterior cerebral artery: Unremarkable. No occlusion or significant stenosis. No aneurysm. Left posterior cerebral artery: Unremarkable. No occlusion or significant stenosis. No aneurysm. Brain: No definite mass, mass effect, or midline shift. Cerebral ventricles: No ventriculomegaly. Bones/joints: Unremarkable. No acute fracture. Soft tissues: Unremarkable. PROCEDURE INFORMATION: Exam: CTA Neck With Contrast Exam date and time: 01/11/2022 6:28 PM Age: 86 years old Clinical indication: Speech disturbance and syncope and collapse; Additional info: HX of prior seizures TECHNIQUE: Imaging protocol: Computed tomographic angiography of the neck with contrast. 3D rendering (Not supervised by radiologist): MIP and/or 3D reconstructed images were created by the technologist. Radiation optimization: All CT scans at this facility use at least one of these dose optimization techniques: automated exposure control; mA and/or kV adjustment per patient size (includes targeted exams where dose is matched to clinical indication); or iterative reconstruction. Contrast material: VISIPAQUE; Contrast volume: 90 ml; Contrast route: INTRAVENOUS (IV); COMPARISON: CTA Head/Neck [id number] 05/25/2015 2:07 PM RADIATION DOSE METRICS: Total DLP (mGy-cm): 1682.27 FINDINGS: Right common carotid artery: No stenosis. No dissection or occlusion. Right internal carotid artery: Small focal calcified plaque of the proximal right ICA. Minimal stenosis. Right external carotid artery: No occlusion or stenosis of the origin. Left common carotid artery: No stenosis. No dissection or occlusion. Left internal carotid artery: Small volume noncalcified plaque of the proximal left ICA. Mild stenosis. Left external carotid artery: No occlusion or stenosis of the origin. Right vertebral artery: No stenosis. No dissection or occlusion. Left vertebral artery: No stenosis. No dissection or occlusion. Soft tissues: Normal. No significant soft tissue swelling. Bones/joints: No acute fracture. CT/CT angio headneck* [id number] IMPRESSION: Negative for intracranial large arterial vessel occlusion. IMPRESSION: Less than 50% carotid artery stenosis. REFERENCES: NASCET CRITERIA. The degree of internal carotid artery stenosis is based on NASCET criteria. Normal is no stenosis. Mild is less than 50% stenosis. Moderate is 50-69% stenosis. Severe is 70% to 99% stenosis. Total occlusion is no detectable patent lumen.
[2022-01-11 17:28] LABS: Add Urine Microscopic? NO; Charge for UA Resulting for Rev
[2022-01-11 17:31] LABS: Bilirubin Urine Neg (Negative); Blood Urine Neg (Negative); Glucose Urine UA Norm (Normal); Ketones Urine Negative (Negative); Leukocyte Esterase Urine Negative (Negative); Nitrate Urine Negative (Negative); Protein Urine Neg (Negative); Urine Appearance Clear (CLEAR); Urine Color Yellow (Yellow); Urobilinogen Urine Norm (Negative); pH Urine 6.5 (5-7)
[2022-01-11] MEDS: sodium chloride 0.9% 500 ML 999 ML IV (17:57)
[2022-01-11 17:58] VITALS: BP 171/86; PULSE 65; RESP 16; O2SAT 97
[2022-01-11] MEDS: hyDRALAzine 20 mg/mL INJ 1 mL 10 MG IVP (19:03)
[2022-01-11 20:01] VITALS: BP 178/81; PULSE 88; RESP 18; O2SAT 97
[2022-01-11] MEDS: amlodipine 10 mg Tablet PO (20:04)
[2022-01-11 20:38] VITALS: RESP 20
[2022-01-11] MEDS: oxyCODONE-APAP 5-325 mg Tablet 1 TAB PO (20:38)
[2022-01-11 20:40] VITALS: BP 172/83; PULSE 88; RESP 18; TEMP 36.8; O2SAT 99
== END 2022-01-11 20:50 | disposition home or self-care (01) ==
PROVIDERS: Family Medicine; Emergency Provider Emergency Medicine; PCP Nurse Practitioner Family
DX: S20.221A Contusion of right back wall of thorax, initial encounter (principal); X58.XXXA Exposure to other specified factors, initial encounter; I10 Essential (primary) hypertension; Z79.82 Long term (current) use of aspirin; E78.5 Hyperlipidemia, unspecified; Z87.891 Personal history of nicotine dependence
CPT/HCPCS: 70450; 70496; 70498; 71045; 80053; 81003; 83735; 85025; 93005; 96361; 96374; 96375; 96376; 99285; J0360; J2405; J7040; Q9967